=== PATIENT | male | born 1940 | race Caucasian/White ===

== ENCOUNTER 2017-05-12 20:14 | Inpatient (IN) | payer OTHER, BC ==
[~2017-05-12] VITALS: Ht 175.3 cm; Wt 98.9 kg
--- NOTE | ~2017-05-12 | EKG ---
[address] [facility] [place] [address] ELECTROCARDIOGRAM REPORT Name: SHARYN OSEGUERA V Room #: 170-12 ADM IN M.R.#: [id number] Admission: 05/12/17 Attend Phys: Colten Obrien MD Discharge: Date of : 38 Report #: [id number] THIS REPORT FOR: //name// [facility] ED Test Date: 2017-05-12 Test Time: 20:28:20 Pat Name: SHARYN OSEGUERA Department: Room: 170 Gender: M Co Founder And Cto: [id number] : 1940 Requested By: Emma Stevens Order Number: [id number] MD: Hesham Eugene Measurements Intervals [place] Rate: 71 P: 0 RI: 66 QRS: 86 QRSD: 123 T: 240 QT: 393 QTc: 428 Interpretive Statements Sinus rhythm Short RI interval Probable left atrial enlargement Left ventricular hypertrophy Anterior Q waves, possibly due to LVH Nonspecific T abnormalities, inferior leads Electronically Signed On 05-12-2017 22:12:57 BEAN PICKER by Hesham Eugene [email or web address] <ELECTRONICALLY SIGNED> By: Hesham Eugene MD 05/12/172 27 27 Hesham Eugene MD /VALENTINO
--- NOTE | ~2017-05-12 | HC ---
[facility] [place] [address] CONSULTATION Name: SHARYN OSEGUERA V Room #: 434-P [facility] IN M.R.#: [id number] Admission: 05/12/17 Attend Phys: Car Mabry MD Discharge: 05/14/17 Date of : 39 Report #: [id number] THIS REPORT FOR: //name// CC: Tai Mabry CARDIOLOGY CONSULTATION REASON FOR CONSULTATION: Weakness. HISTORY OF PRESENT ILLNESS: The patient is a 77-year-old who I have seen here as an inpatient, but follows with a primary strategic planning specialist at the [facility]. The patient has a history of coronary artery disease, status post CABG, ischemic cardiomyopathy, EF of 30%-35%, Medtronic ICD with 2 right-sided leads and abandoned ICD lead. He also has a history of diabetes, hypertension and prior CVA. The patient has been in his usual state of health. He reports that he has been having some back pain of unknown etiology. This started about a week ago. He reports that he tried to get up out of bed and due to weakness, was not able to stand and fell on the floor and he could not get off the floor. As such, he called the EMS and he was brought to the Emergency Room. He was admitted for further evaluation. Speaking with the patient, he denies chest pain or chest tightness. He denies any PND or orthopnea. He denies presyncope or syncope. He reports that his shortness of breath has been relatively stable and he has been doing well from a cardiovascular standpoint. REVIEW OF SYSTEMS: A 12-point review of systems was performed and was negative other than what I mentioned above. PAST MEDICAL HISTORY: See my HPI. SOCIAL HISTORY: Does not smoke. FAMILY HISTORY: Noncontributory. ALLERGIES: INCLUDE PENICILLIN, ATORVASTATIN. MEDICATIONS: Include warfarin, losartan, Zetia, digoxin, aspirin, amiodarone 200 a day, glimepiride, insulin, Lasix, Benadryl, acetaminophen, guaifenesin. PHYSICAL EXAMINATION: VITAL SIGNS: Temperature is 36.4, pulse 72, respirations 20, blood pressure 142/75, sats are 99%. GENERAL: He is in no acute distress, alert and oriented x 3. HEENT: His sclerae are anicteric. His oropharynx is clear. NECK: Supple, with no thyromegaly or carotid bruits. HEART: Regular rate and rhythm with normal S1 and S2. No S3, S4. He does not have appreciable JVD. [address] [address] CONSULTATION Name: SHARYN OSEGUERA V Room #: 434-P [facility] IN M.R.#: [id number] Admission: 05/12/17 Attend Phys: Car Mabry MD Discharge: 05/14/17 Date of : 38 Report #: [id number] LUNGS: Clear to auscultation bilaterally. ABDOMEN: Soft, nontender, nondistended with no hepatosplenomegaly. EXTREMITIES: There is no clubbing, cyanosis and there is no edema noted. NEUROLOGIC: His cranial nerves 2-12 are intact. His incision site which is right-sided has healed nicely with no signs of infection. LABORATORY DATA: His 12-lead EKG, I reviewed from yesterday showed sinus rhythm with no ischemic changes. He had a chest x-ray, which I reviewed, which shows a right-sided ICD with 2 ICD leads on the right with one of them being abandoned. There is also an atrial lead. There is no evidence of pulmonary edema. His white count is 13.9, his hemoglobin is 12.2, his platelets are 139. Blood gas pH 7.4, pCO2 of 35, pCO2 of 76. Coags: INR was 2.4. Chemistry: Sodium was 138, potassium 3.7, BUN 19, creatinine 1.7. Troponin was negative. His proBNP was 2835. ASSESSMENT: 1. Coronary artery disease. 2. Ischemic cardiomyopathy. 3. Chronic congestive heart failure. 4. Weakness of unclear etiology. In summary, the patient is a 77-year-old with a history of known coronary artery disease as well as ischemic cardiomyopathy and congestive heart failure, presents with worsening weakness. On physical exam, the patient appears to be clinically euvolemic and does not appear to be in acute congestive heart failure. I would recommend continuing his standard home medications for management of his cardiomyopathy. With regards to his coronary disease, he has no symptoms of angina. His EKG shows no ischemic changes and his initial troponin was normal. With regards to his atrial fibrillation, this appears to be controlled on his current dose of amiodarone and he should continue with his current anticoagulation regimen. I thank you for allowing me to participate in his care. <ELECTRONICALLY SIGNED> By: Hesham Eugene MD 05/17/17 1313 1540 [id number] Hesham Eugene MD /nt
--- NOTE | ~2017-05-12 | 2DMMODE ---
[facility] [place] [place] [address] 2 D/M-MODE ECHOCARDIOGRAM Name: ANA ROSASHARYN Joseph Room #: 434-P ADM IN M.R.#: [id number] Admission: 05/12/17 Attend Phys: Patti Burr Discharge: Date of : 38 Date of Service: 05/13/17 1543 Report #: [id number] THIS REPORT FOR: //name// APPROVED REPORT Study performed: 05/13/2017 14:05:08 EXAM: Comprehensive 2D, Doppler, and color-flow Echocardiogram Patient Location: Bedside Room #: 434 Status: routine BSA: 2.14 HR: 70 bpm BP: 142/75 mmHg Other Information Study Quality: Adequate Indications Diabetes Pacemaker Hypertension/HDD History of Atrial fibrillation, HLP. Echo Enhancing Agent Indication: Endocardial border delineation Agent(s) / Amount(s) Used: Optison 3 cc 2D Dimensions LVEF(%): 29.68 (>50%) IVSd: 16.03 (7-11mm) LVDd: 63.91 mm PWd: 13.84 (7-11mm) Ascending Ao: 35.59 (22-36mm) LVDs: 54.80 (25-40mm) Aortic Root: 38.45 mm IVC: 22.00 mm Puentes's LVEF: 29.68 % Volumes Left Atrial Volume (Systole) Single Plane 4CH: 92.95 mL Single Plane 2CH: 86.73 mL LA ESV Index: 46.00 mL/m2 Aortic Valve AoV Peak Marlo.: 1.55 m/s [facility] [address] [place] [address] 2 D/M-MODE ECHOCARDIOGRAM Name: SHARYN OSEGUERA V Room #: 434-P [facility] IN [facility].#: [id number] Admission: 05/12/17 Attend Phys: Patti Burr Discharge: Date of : 38 Date of Service: 05/13/17 1543 Report #: [id number] AO Peak Gr.: 9.63 mmHg LVOT Max P.07 mmHg LVOT Max V: 1.01 m/s Mitral Valve E/A Ratio: 2.2 MV Decel. Time: 129.64 ms MV E Max Marlo.: 0.93 m/s MV A Marlo.: 0.43 m/s MV PHT: 37.59 ms IVRT: 73.82 ms Pulmonary Valve PV Peak Marlo.: 0.94 m/s PV Peak Gr.: 3.53 mmHg Tricuspid Valve TR Peak Marlo.: 2.61 m/s TR Peak Gr.: 27.27 mmHg PA Pressure: 37.00 mmHg Left Ventricle Left ventricle is dilated. There is severe hypokinesis in the apical wall. There is hypokinesis in the anterior wall. There is hypokinesis in the anterolateral wall. There is hypokinesis in the inferolateral wall. Mild to moderate concentric left ventricular hypertrophy. Left ventricular ejection fraction is moderate to severely decreased. LVEF is 30-35%. Grade IV - fixed restrictive diastolic dysfunction. Right Ventricle The right ventricle is normal size. Right ventricle is mildly hypokinetic. Pacemaker lead is present in the right ventricle. Atria Left atrium is dilated. Right atrium is at the upper limits of normal. Pacemaker lead is present in the right atrium. Aortic Valve The aortic valve is normal in structure. Aortic valve is calcified. Trace to mild aortic regurgitation. There is no aortic valvular stenosis. Mitral Valve The mitral valve is normal in structure. Mild mitral regurgitation. No evidence of mitral valve stenosis. Tricuspid Valve The tricuspid valve is normal in structure. There is trace tricuspid [facility] [address] [place] [address] 2 D/M-MODE ECHOCARDIOGRAM Name: SHARYN OSEGUERA V Room #: 434-P [facility] IN .R.#: [id number] Admission: 05/12/17 Attend Phys: Patti Burr Discharge: Date of : 38 Date of Service: 05/13/17 1543 Report #: [id number] regurgitation. The right atrial pressure is estimated at mmHg. There is mild pulmonary hypertension. Pulmonic Valve The pulmonary valve is normal in structure. Trace pulmonic regurgitation. Great Vessels The aortic root is normal in size. IVC is dilated and collapses >50% with inspiration. Pericardium There is no pericardial effusion. <Conclusion> Left ventricle is dilated. Left ventricular ejection fraction is moderate to severely decreased. There is severe hypokinesis in the apical wall. There is hypokinesis in the anterior wall. There is hypokinesis in the anterolateral wall. There is hypokinesis in the inferolateral wall. LVEF is 30-35%. Right ventricle is mildly hypokinetic. Pacemaker lead is present in the right ventricle. Left atrium is dilated. Right atrium is at the upper limits of normal. Pacemaker lead is present in the right atrium. The aortic valve is normal in structure. Aortic valve is calcified. Trace to mild aortic regurgitation. There is no aortic valvular stenosis. The mitral valve is normal in structure. The tricuspid valve is normal in structure. There is trace tricuspid regurgitation. The right atrial pressure is estimated at mmHg. There is mild pulmonary hypertension. The pulmonary valve is normal in structure. Trace pulmonic regurgitation. There is no pericardial effusion. <ELECTRONICALLY SIGNED> By: Gato Oshea MD 05/13/17 1543 1543 1543 Gato Oshea MD /INF
[~2017-05-12 20:14] MED LIST: AMARYL2 MG PO; AMARYL4 MG PO; ASPIRIN EC325 M1 PO; ASPIRIN325 PO; B-121000 MCG PO; CARVEDILOL3.125 MG PO; CIPRO500 MG PO; CO Q-10100 MG; CO Q-10200 MG PO; CORAL CALCIUM1 EAC4 PO; COREG6.25 MG PO; COUMADIN 1MG TAB1 M1 PO; COUMADIN 5 MG TA5 M1 PO; COZAAR 25 MG TA25 M2 PO; COZAAR100 MG PO; DIGITEK125 MC1 PO; DOXYCYCLINE 10100 MG PO; ENOXAPARIN100 MG/11; FISH OIL 1,4001 EACH PO; FLOMAX0.4 MG PO; FUROSEMIDE 20 M20 M1 PO; GLUCOPHAGE1000 MG PO; GLUCOPHAGE500 MG PO; KLOR-CON 1010 MEQ PO; LANTUS SOL100 UNIT/1; LANTUS SOL100 UNIT/1 SQ; LANTUS SOL100 UNIT/1 SUBQ; LASIX 20 MG TAB20 MG PO; METFORMIN HCL1000 M1 PO; METFORMIN HCL500 MG PO; METOLAZONE 2.52.5 M1 PO; METOLAZONE 2.52.5 MG PO; MULTI VITAMIN1 EACH PO; NORCO 5-325 TA1 EACH PO; ONDANSETRON HCL4 M2 PO; OSCAL PO; PACERONE 200 M200 M1 PO; PACERONE200 MG PO; POTASSIUM20 PO; PRAVACHOL 20 MG20 M1 PO; PRAVACHOL40 M1 PO; PRAVACHOL40 MG PO; RESTORIL15 MG PO; SOTALOL 120 MG120 M1 PO; TOBREX5 ML; TRAMADOL 50 MG50 MG; TRAMADOL-ACETA1 EACH PO; TYLENOL325 MG PO; ULTRACET TABLET1 TAB PO; VITAMIN D1000 UNI1 PO; VITAMINC500 PO; ZAROXOLYN 5MG TA5 MG; ZETIA10 MG PO; ZPAK PO
[2017-05-12 20:15] VITALS: BP 136/61
[2017-05-12 20:53] LABS: ABSOLUTE NEUTROPHILS 10.7 thou/uL (1.4-8.2); BASOPHILS 0.7 % (0.0-2.0); EOSINOPHILS 0.5 % (0.0-3.0); HEMATOCRIT 37.8 % (42.0-52.0); HEMOGLOBIN 12.2 gm/dL (14.0-18.0); LYMPHOCYTES 12.6 % (24.0-44.0); MCH 27.3 pg (26.0-34.0); MCHC 32.3 g/dL (28.0-37.0); MCV 84.6 fL (80.0-100.0); MONOCYTES 9.2 % (1.0-8.0); PLATELET COUNT 139 thou/uL (150-400); RBC 4.47 mil/uL (4.50-6.00); WBC 13.9 thou/uL (4.0-11.0)
[2017-05-12 20:54] LABS: MANUAL DIFF NO
[2017-05-12 21:06] LABS: CALCIUM 9.6 mg/dL (8.5-10.1); CREATININE 1.7 mg/dL (0.7-1.3); POTASSIUM 3.7 mmol/L (3.5-5.1)
[2017-05-12 21:12] LABS: APTT 44.3 Seconds (24.5-32.8); INR 2.6; PROTIME 26.1 Seconds (9.3-11.4)
[2017-05-12 21:16] LABS: ALBUMIN 3.5 g/dL (3.4-5.0); DIRECT BILIRUBIN 0.3 mg/dL (<0.1-0.3); TOTAL BILIRUBIN 1.3 mg/dL (<0.1-1.0); TOTAL PROTEIN 7.9 g/dL (6.4-8.2); TROPONIN-I 0.05 ng/mL (<0.06)
[2017-05-12 21:37] LABS: URINE BILIRUBIN NEGATIVE (Negative); URINE BLOOD 1+ (Negative); URINE COLOR YELLOW; URINE GLUCOSE-RANDOM* NEGATIVE (Negative); URINE KETONES NEGATIVE (Negative); URINE NITRITE NEGATIVE (Negative); URINE PROTEIN (DIPSTICK) 2+ (Negative); URINE UROBILINOGEN 0.2 E.U./dl (0.2-1.0)
[2017-05-12 21:44] LABS: BACTERIA None Seen /HPF (None Seen); CASTS None Seen /LPF (None Seen); CRYSTALS None Seen /LPF (None Seen); SQUAMOUS 0-3 Few /LPF (0-3); URINE RBC 0-2 Rare /HPF (0-2); URINE WBC None Seen /HPF (0-5)
[2017-05-12 22:00] LABS: ABG SAMPLE TYPE ARTERIAL; BE(vivo) 2.6 mmol/L (-2 to +3); HCO3 25.9 mmol/L (22.0-26.0); LACTATE 1.29 mmol/L (0.5-2.0); O2Hb 94.8 % (92.0-98.0); PCO2 35.8 mmHg (35.0-45.0); PO2 76.4 mmHg (80.0-100.0); STICK SITE L.RADIAL; pH 7.478 (7.360-7.450); sO2 96.2 % (92.0-98.0)
[2017-05-12 22:56] VITALS: BP 123/82
[2017-05-12 23:26] VITALS: BP 148/72
[2017-05-13] MEDS ORDERED: COUMADIN 5 MG TA5 M1 PO (00:10)
[2017-05-13 01:21] LABS: FOLIC ACID > 40.0 ng/mL (8.6-58.9)
[2017-05-13 04:57] VITALS: BP 133/61
[2017-05-13 05:15] LABS: INR 2.4
[2017-05-13 08:00] VITALS: BP 142/75
[2017-05-13 11:58] VITALS: BP 142/75
[2017-05-13 16:00] VITALS: BP 153/70
[2017-05-13 20:05] VITALS: BP 141/61
[2017-05-14 04:26] VITALS: BP 155/75
[2017-05-14 05:45] LABS: CALCIUM 8.8 mg/dL (8.5-10.1); CREATININE 1.9 mg/dL (0.7-1.3); MAGNESIUM 1.9 mg/dL (1.8-2.4); POTASSIUM 3.3 mmol/L (3.5-5.1)
[2017-05-14 05:47] LABS: INR 2.7; PROTIME 27.4 Seconds (9.3-11.4)
[2017-05-14 08:00] VITALS: BP 160/75
[2017-05-14 12:53] VITALS: BP 142/75
[2017-05-14 15:51] VITALS: BP 139/68
[2017-05-14 16:27] VITALS: BP 142/75
== END 2017-05-14 17:30 | disposition home health service (06) | DRG 291 ==
LOC: ER 20:14 → EROBS 21:37 → 4S 21:37 → ENTRNSPT 05-14 16:54 → 4S 05-14 17:30
PROVIDERS: Emergency Medicine; Internal Medicine; Nurse Practitioner Acute Care
DX: I13.0 Hypertensive heart and chronic kidney disease with heart failure and stage 1 through stage 4 chronic kidney disease, or unspecified chronic kidney disease (principal); I50.23 Acute on chronic systolic (congestive) heart failure; J96.00 Acute respiratory failure, unspecified whether with hypoxia or hypercapnia; I25.10 Atherosclerotic heart disease of native coronary artery without angina pectoris; I25.5 Ischemic cardiomyopathy; E78.5 Hyperlipidemia, unspecified; E11.22 Type 2 diabetes mellitus with diabetic chronic kidney disease; I48.2 Chronic atrial fibrillation; N18.3 Chronic kidney disease, stage 3 (moderate); Z95.1 Presence of aortocoronary bypass graft; Z79.82 Long term (current) use of aspirin; Z88.8 Allergy status to other drugs, medicaments and biological substances; Z95.0 Presence of cardiac pacemaker; Z95.5 Presence of coronary angioplasty implant and graft; Z86.73 Personal history of transient ischemic attack (TIA), and cerebral infarction without residual deficits; Z88.0 Allergy status to penicillin; Z79.01 Long term (current) use of anticoagulants; Z87.891 Personal history of nicotine dependence; Z82.49 Family history of ischemic heart disease and other diseases of the circulatory system; Z83.3 Family history of diabetes mellitus; Z79.899 Other long term (current) drug therapy
CPT/HCPCS: 10195

== ENCOUNTER 2017-12-03 02:57 | Emergency (ER) | payer OTHER, BC ==
[~2017-12-03] VITALS: Ht 175.3 cm; Wt 104.3 kg
--- NOTE | ~2017-12-03 | EKG ---
[place] [address] [place] [address] ELECTROCARDIOGRAM REPORT Name: SHARYN OSEGUERA V [id number] Admission: 12/03/17 Attend Phys: Discharge: 12/03/17 Date of : 39 Report #: [id number] THIS REPORT FOR: //name// [facility] ED Test Date: 2017-12-03 Test Time: 03:46:51 Pat Name: SHARYN OSEGUERA Department: Room: Gender: Stable Manager: [facility] : 1940 Requested By: Emma Stevens Order Number: [id number] MD: Romulo Moncada Measurements Intervals [place] Rate: 71 P: 243 [place]: 165 QRS: 78 QRSD: 125 T: 159 QT: 392 QTc: 426 Interpretive Statements Sinus rhythm with atrial pacing Poor R wave progression Compared to ECG 05/12/2017 20:28:20 No significant change was found Electronically Signed On 12-03-2017 9:00:58 CDT by Romulo Moncada [email or web address] <ELECTRONICALLY SIGNED> By: Romulo Moncada MD, [facility] 12/03/17 0900 0346 0346 Romulo Moncada MD, FACC /EPI
[2017-12-03 03:31] LABS: ABSOLUTE NEUTROPHILS 8.5 thou/uL (1.4-8.2); BASOPHILS 1.2 % (0.0-2.0); HEMATOCRIT 38.3 % (42.0-52.0); HEMOGLOBIN 12.7 gm/dL (14.0-18.0); LYMPHOCYTES 17.1 % (24.0-44.0); MCH 27.5 pg (26.0-34.0); MCHC 33.1 g/dL (28.0-37.0); MCV 83.2 fL (80.0-100.0); MONOCYTES 11.1 % (1.0-8.0); PLATELET COUNT 165 thou/uL (150-400); POLYS 67.6 % (36.0-66.0); RDW 16.1 % (10.5-14.5); WBC 12.6 thou/uL (4.0-11.0)
[2017-12-03 03:40] LABS: CREATININE 2.1 mg/dL (0.7-1.3); POTASSIUM 3.9 mmol/L (3.5-5.1)
[2017-12-03 03:43] LABS: INR 2.5; PROTIME 25.3 Seconds (9.3-11.4)
[2017-12-03 04:02] LABS: URINE BILIRUBIN NEGATIVE (Negative); URINE BLOOD TRACE (Negative); URINE CLARITY CLEAR; URINE COLOR YELLOW; URINE GLUCOSE-RANDOM* NEGATIVE (Negative); URINE KETONES NEGATIVE (Negative); URINE LEUKOCYTES NEGATIVE (Negative); URINE NITRITE NEGATIVE (Negative); URINE PROTEIN (DIPSTICK) 2+ (Negative); URINE UROBILINOGEN 0.2 E.U./dl (0.2-1.0)
[2017-12-03 04:10] LABS: BACTERIA None Seen /HPF (None Seen); CASTS None Seen /LPF (None Seen); MUCUS None Seen strn/LPF (None Seen); SQUAMOUS None Seen /LPF (0-3); URINE RBC None Seen /HPF (0-2); URINE WBC None Seen /HPF (0-5)
[2017-12-03 04:11] LABS: CRYSTALS None Seen /LPF (None Seen)
== END 2017-12-03 04:26 | disposition home or self-care (01) ==
LOC: ER 02:57
PROVIDERS: Emergency Medicine
DX: M54.5 Low back pain (principal); R10.9 Unspecified abdominal pain; E78.5 Hyperlipidemia, unspecified; I48.91 Unspecified atrial fibrillation; I12.9 Hypertensive chronic kidney disease with stage 1 through stage 4 chronic kidney disease, or unspecified chronic kidney disease; E11.22 Type 2 diabetes mellitus with diabetic chronic kidney disease; N18.3 Chronic kidney disease, stage 3 (moderate); I11.0 Hypertensive heart disease with heart failure; I50.9 Heart failure, unspecified; I25.810 Atherosclerosis of coronary artery bypass graft(s) without angina pectoris; Z95.0 Presence of cardiac pacemaker; Z88.0 Allergy status to penicillin

== ENCOUNTER 2017-12-09 09:37 | Emergency (ER) | payer OTHER, BC ==
[~2017-12-09] VITALS: Ht 175.3 cm; Wt 92.1 kg
[2017-12-09] MEDS ORDERED: ULTRAM 50MG TAB50 MG PO (10:52)
== END 2017-12-09 11:50 | disposition home or self-care (01) ==
LOC: ER 09:37
DX: M54.5 Low back pain (principal); I25.10 Atherosclerotic heart disease of native coronary artery without angina pectoris; I48.91 Unspecified atrial fibrillation; I13.0 Hypertensive heart and chronic kidney disease with heart failure and stage 1 through stage 4 chronic kidney disease, or unspecified chronic kidney disease; I50.9 Heart failure, unspecified; N18.3 Chronic kidney disease, stage 3 (moderate); E78.5 Hyperlipidemia, unspecified; E11.9 Type 2 diabetes mellitus without complications; F17.210 Nicotine dependence, cigarettes, uncomplicated; Z88.0 Allergy status to penicillin; Z88.1 Allergy status to other antibiotic agents

== ENCOUNTER 2017-12-11 16:39 | Emergency (ER) | payer OTHER, BC ==
[~2017-12-11] VITALS: Ht 175.3 cm; Wt 104.3 kg
--- NOTE | ~2017-12-11 | EKG ---
[facility] [place] [address] ELECTROCARDIOGRAM REPORT Name: SHARYN OSEGUERA V [facility] [id number] Admission: 12/11/17 Attend Phys: Discharge: 12/11/17 Date of : 39 Report #: [id number] THIS REPORT FOR: //name// [facility] ED Test Date: 2017-12-11 Test Time: 16:51:18 Pat Name: SHARYN OSEGUERA Department: Room: Gender: M Medical Records Administrator: KKODJOVI : 1940 Requested By: Gris Waldron Order Number: [id number] MD: Romulo Moncada Measurements Intervals [place] Rate: 70 P: [place]: QRS: 77 QRSD: 128 T: 265 QT: 399 QTc: 431 Interpretive Statements Sinus rhythm with first-degree AV block Probable LVH with secondary repol abnrm Anterior ST elevation, probably due to LVH Compared to ECG 12/03/2017 03:46:51 No significant change was found Electronically Signed On 12-12-2017 8:41:38 CDT by Romulo Moncada [email or web address] <ELECTRONICALLY SIGNED> By: Romulo Moncada MD, [facility] 12/12/17 0841 165 50 Romulo Moncada MD, [facility] /EPI
[~2017-12-11 16:39] MED LIST changes: +ULTRAM 50MG TAB50 MG PO
[2017-12-11 17:09] LABS: ABSOLUTE NEUTROPHILS 7.9 thou/uL (1.4-8.2); BASOPHILS 1.1 % (0.0-2.0); EOSINOPHILS 2.1 % (0.0-3.0); HEMATOCRIT 38.6 % (42.0-52.0); HEMOGLOBIN 13.1 gm/dL (14.0-18.0); LYMPHOCYTES 18.4 % (24.0-44.0); MCH 27.7 pg (26.0-34.0); MCHC 33.8 g/dL (28.0-37.0); MONOCYTES 10.2 % (1.0-8.0); PLATELET COUNT 184 thou/uL (150-400); POLYS 68.2 % (36.0-66.0); RBC 4.71 mil/uL (4.50-6.00); RDW 15.9 % (10.5-14.5); WBC 11.5 thou/uL (4.0-11.0)
[2017-12-11 17:17] LABS: ANION GAP 8 mmol/L (7-16); BUN 32 mg/dL (7-18); CALCIUM 9.4 mg/dL (8.5-10.1); CHLORIDE 98 mmol/L (98-107); CO2 28 mmol/L (21-32); CREATININE 2.1 mg/dL (0.7-1.3); GLUCOSE 135 mg/dL (74-106); POTASSIUM 4.4 mmol/L (3.5-5.1); SODIUM 134 mmol/L (136-145)
[2017-12-11 17:26] LABS: ALBUMIN 3.8 g/dL (3.4-5.0); LIPASE 320 U/L (73-393); SGOT 40 U/L (15-37); SGPT 40 U/L (30-65); TOTAL BILIRUBIN 0.7 mg/dL (<0.1-1.0); TOTAL PROTEIN 8.6 g/dL (6.4-8.2); TROPONIN-I <0.06 ng/mL (<0.06)
[2017-12-11 17:54] LABS: URINE BILIRUBIN NEGATIVE (Negative); URINE BLOOD 1+ (Negative); URINE CLARITY CLEAR; URINE COLOR YELLOW; URINE GLUCOSE-RANDOM* NEGATIVE (Negative); URINE KETONES NEGATIVE (Negative); URINE LEUKOCYTES-REFLEX NEGATIVE (Negative); URINE NITRITE-REFLEX NEGATIVE (Negative); URINE PROTEIN (DIPSTICK) 1+ (Negative); URINE UROBILINOGEN 0.2 E.U./dl (0.2-1.0)
[2017-12-11 18:02] LABS: CASTS None Seen /LPF (None Seen); CRYSTALS None Seen /LPF (None Seen); SQUAMOUS 0-3 Few /LPF (0-3); URINE RBC 3-10 Few /HPF (0-2)
[2017-12-11 18:03] LABS: BACTERIA-REFLEX 1-9 Few /HPF (None Seen); URINE WBC-REFLEX None Seen /HPF (0-5)
[2017-12-12] MEDS ORDERED: VITAMIN D1000 UNI1 PO (13:37)
[2017-12-12] MEDS ORDERED: TUMS PO (13:37)
[2017-12-12] MEDS ORDERED: COREG12.5 MG PO (13:37)
[2017-12-12] MEDS ORDERED: HUMALOG100 UNIT/2 (13:37)
[2017-12-12] MEDS ORDERED: COENZYME Q-10200 MG PO (13:38)
[2017-12-12] MEDS ORDERED: VITAMIN B-12500 MCG PO (13:38)
[2017-12-12] MEDS ORDERED: OMEGA-31000 M1 PO (13:39)
[2017-12-12] MEDS ORDERED: ONE DAILY MULT1 EAC2 PO (13:39)
[2017-12-12] MEDS ORDERED: METFORMIN HCL500 MG PO (13:47)
== END 2017-12-11 20:27 | disposition home or self-care (01) ==
LOC: ER 16:39
PROVIDERS: Physician Assistant
DX: K59.00 Constipation, unspecified (principal); I25.10 Atherosclerotic heart disease of native coronary artery without angina pectoris; I13.0 Hypertensive heart and chronic kidney disease with heart failure and stage 1 through stage 4 chronic kidney disease, or unspecified chronic kidney disease; I50.9 Heart failure, unspecified; N18.3 Chronic kidney disease, stage 3 (moderate); I48.91 Unspecified atrial fibrillation; E11.9 Type 2 diabetes mellitus without complications; E78.5 Hyperlipidemia, unspecified; Z88.0 Allergy status to penicillin; Z88.1 Allergy status to other antibiotic agents; Z87.891 Personal history of nicotine dependence

== ENCOUNTER 2017-12-12 00:01 | Emergency (ER) | payer OTHER, BC ==
[~2017-12-12] VITALS: Ht 175.3 cm; Wt 104.3 kg
[~2017-12-12 00:01] MED LIST changes: -COENZYME Q-10200 MG PO; -COREG12.5 MG PO; -HUMALOG100 UNIT/2; -OMEGA-31000 M1 PO; -ONE DAILY MULT1 EAC2 PO; -TUMS PO; -VITAMIN B-12500 MCG PO
[2017-12-12 02:34] LABS: INR 3.2; PROTIME 32.4 Seconds (9.3-11.4)
[2017-12-12] MEDS ORDERED: COREG12.5 MG PO (13:37)
[2017-12-12] MEDS ORDERED: TUMS PO (13:37)
[2017-12-12] MEDS ORDERED: VITAMIN D1000 UNI1 PO (13:37)
[2017-12-12] MEDS ORDERED: HUMALOG100 UNIT/2 (13:37)
[2017-12-12] MEDS ORDERED: COENZYME Q-10200 MG PO (13:38)
[2017-12-12] MEDS ORDERED: VITAMIN B-12500 MCG PO (13:38)
[2017-12-12] MEDS ORDERED: ONE DAILY MULT1 EAC2 PO (13:39)
[2017-12-12] MEDS ORDERED: OMEGA-31000 M1 PO (13:39)
[2017-12-12] MEDS ORDERED: METFORMIN HCL500 MG PO (13:47)
== END 2017-12-12 04:23 | disposition home or self-care (01) ==
LOC: ER 00:01
PROVIDERS: Emergency Medicine
DX: S00.03XA Contusion of scalp, initial encounter (principal); F17.210 Nicotine dependence, cigarettes, uncomplicated; I25.10 Atherosclerotic heart disease of native coronary artery without angina pectoris; I13.0 Hypertensive heart and chronic kidney disease with heart failure and stage 1 through stage 4 chronic kidney disease, or unspecified chronic kidney disease; E11.22 Type 2 diabetes mellitus with diabetic chronic kidney disease; N18.3 Chronic kidney disease, stage 3 (moderate); I50.9 Heart failure, unspecified; I48.91 Unspecified atrial fibrillation; E78.5 Hyperlipidemia, unspecified; Z88.1 Allergy status to other antibiotic agents; Z88.8 Allergy status to other drugs, medicaments and biological substances; Z88.0 Allergy status to penicillin; W06.XXXA Fall from bed, initial encounter; Y93.89 Activity, other specified; Y92.89 Other specified places as the place of occurrence of the external cause; Y99.8 Other external cause status

== ENCOUNTER → 2017-12-12 | Outpatient (CLI) | payer OTHER, BC ==
[~2017-12-12] VITALS: Ht 175.3 cm; Wt 104.3 kg
[~2017-12-12] MED LIST changes: +COENZYME Q-10200 MG PO; +COREG12.5 MG PO; +HUMALOG100 UNIT/2; +OMEGA-31000 M1 PO; +ONE DAILY MULT1 EAC2 PO; +TUMS PO; +VITAMIN B-12500 MCG PO
--- NOTE | ~2017-12-12 | HPC ---
[facility] [address] [place] [address] PAIN MANAGEMENT CONSULTATION Name: SHARYN OSEGUERA V Room #: REG [facility] Valentina.#: [id number] Admission: 12/12/17 Attend Phys: Derrick Cardona DO Discharge: Date of : 39 Report #: [id number] THIS REPORT FOR: //name// CC: Tai Cardona DATE OF SERVICE: 12/12/2017 The patient is a very unfortunate 77-year-old gentleman seen in consultation at the request of Dr. Wharton for assistance with management of axial back pain. The patient has used a walker "off and on" for a number of years. Over the past 6 months, his axial back pain has gotten to the point that he has been using a walker 100% of the time. He is seen today in the company of a neighbor who is very helpful and supportive. She notes that the patient's pain has gotten to the point that he is eating very little and is becoming more disabled. He is becoming more deconditioned. He has actually been in the ER 3 times in the past 3 days, he was seen 12/09/2017 for axial back pain. Seen again 12/11/2017 for constipation. He fell, hit his head and had exacerbation of axial back pain 12/12/2017 (actually very early this morning). Presents to the pain clinic today. Rates his pain anywhere from 6-10 on a VAS. Describes periodic stabbing pain in his back, exacerbated with any and all weightbearing. Has ongoing weakness in his legs, has had episodic sciatic pain, but that has not been a problem recently. He uses tramadol, Icy Hot, Lidoderm and Tylenol for pain. REVIEW OF SYSTEMS: Complete review of systems was attached to chart and gone over with the patient. He is . He has a daughter, who lives out of state. He has a neighbor about his daughter's age who is a very kind and helpful and sets up his medications for him at home and takes him to his doctor's appointments. She has been very busy taking him to the ER the past 3 nights. He does not drink alcohol or use tobacco products. 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 He has a history of significant diabetes, poorly controlled. He has been on insulin for quite some time. Recently started glimepiride and metformin and states his blood sugars are getting "under a little better control." History of coronary artery disease status post coronary artery bypass graft x 6. History of atrial fibrillation, currently on digoxin and Coumadin. Hypertension, treated with losartan and Lasix. Some chronic insomnia for which he takes temazepam. Pravastatin for dyslipidemia. He also takes Zetia as well. History of CVA several years ago. He has loss of visual acuity in the right field. [address] [address] PAIN MANAGEMENT CONSULTATION Name: SHARYN OSEGUERA V Room #: REG [facility] Jayashree#: [id number] Admission: 12/12/17 Attend Phys: Derrick Cardona DO Discharge: Date of : 39 Report #: [id number] PHYSICAL EXAMINATION: 5-foot 9-inch tall, 230-pound gentleman. BMI of 33.9 kilograms per meter squared. Blood pressure 147/82, pulse 71, respirations are 16. Cranial nerves 2-12 are grossly intact, the patient does have lack of visual acuity in the right visual field secondary to CVA. His extraocular muscles do appear to be intact. There is no nystagmus. Cervical range of motion is adequate. Thyroid is modestly enlarged, no nodules are noted. Upper extremity strength is generally preserved. Heart is irregularly irregular. No murmurs are detected. Lungs show some shallow respirations. Has an endomorphic build. Rises from chair using armrests. Does require some assistance. Has ataxia and antalgic gait, diffuse tenderness across the low back about the beltline and below. Lumbar flexion, rotation exacerbate pain. Lower extremity strength is diminished, but symmetric. Straight leg raise negative. Patellar, Achilles reflexes are diminished, but symmetric. DIAGNOSTIC STUDIES: Include x-ray lumbar spine from 12/09/2017, which does note a multilevel spondylosis with facet arthropathy. Suspected diffuse bone demineralization. ASSESSMENT: Symptomatic lumbar spondylosis without myelopathy, lumbosacral spondylosis without myelopathy, axial back pain in gentleman with multiple comorbidities including coronary artery disease, atrial fibrillation, anticoagulated with Coumadin and insulin-dependent diabetes with modest to poor control. RECOMMENDATIONS: 1. I had a long discussion with the patient and his mine engineer today. Typically NSAID agents would be helpful, but they are contraindicated in this gentleman with history of coronary artery disease and nonsteroidal anti-inflammatory agents. 2. We will move forward with bilateral L4-L5 and L5-S1 facet joint injection under fluoroscopy, we will use a diminish dose of steroid (40 mg total). Continue Tylenol, tramadol, and Lidoderm patch for pain as prescribed by Dr. Wharton. 3. Follow up in about 3 weeks for reevaluation. May consider repeat facet joint injections if they are helpful. May give consideration to medial branch dorsal rami diagnostic block and RFL though the patient may need to be off Coumadin for the radiofrequency lesioning (can likely do the medial branch dorsal rami diagnostic blocks with a 22-gauge spinal needle without discontinuing anticoagulant). Thank you for allowing me to participate in the patient's care. I will keep you abreast of his progress. PROCEDURE NOTE: Bilateral L4-L5 and L5-S1 facet joint injections under fluoroscopy. [address] [address] PAIN MANAGEMENT CONSULTATION Name: SHARYN OSEGUERA V Room #: REG [facility] Blanc#: [id number] Admission: 12/12/17 Attend Phys: Derrick Cardona DO Discharge: Date of : 39 Report #: [id number] INDICATION: Symptomatic lumbar and lumbosacral spondylosis without myelopathy (M47.816, M47.817). PROCEDURE: After written informed consent was obtained, the patient was taken to the fluoroscopy suite on the [facility]. He was rolled from supine to prone. Area of maximal tenderness was identified and fluoroscopically noted to be over the L4-L5 and L5-S1 facet joints. A wide prep and drape was accomplished. Skin wheal with Xylocaine was raised. A 22-gauge stylet needle was placed to contact the inferior aspect of the right L4-L5 and right L5-S1 facet joints. AP and oblique projections showed good needle placement. A 10 mg triamcinolone plus 1 mL of 0.5% preservative-free bupivacaine was injected at each site. Needle was removed. C-arm was turned obliquely to the contralateral, i.e., left side and procedure was repeated. After all four needles were removed, the area was cleansed. The patient was logrolled back on to the transportation [facility]. Taken to the recovery room and monitored for an appropriate period of time, discharged in good and stable condition, noting incremental improvement of baseline pain. Fluoroscopy time was under 20 seconds. We will have the patient follow up with Dr. Aristides Cardona in 3 weeks if needed. <ELECTRONICALLY SIGNED> By: Derrick Cardona DO 12/13/17 0715 1435 1836 Derrick Cardona DO /nt
[2017-12-12 13:47] VITALS: BP 147/82
== END | disposition home or self-care (01) ==
LOC: PAIN
DX: M47.816 Spondylosis without myelopathy or radiculopathy, lumbar region (principal); M47.817 Spondylosis without myelopathy or radiculopathy, lumbosacral region; M54.9 Dorsalgia, unspecified; I25.10 Atherosclerotic heart disease of native coronary artery without angina pectoris; I48.91 Unspecified atrial fibrillation; E11.22 Type 2 diabetes mellitus with diabetic chronic kidney disease; N18.6 End stage renal disease; Z79.4 Long term (current) use of insulin; Z79.01 Long term (current) use of anticoagulants; Z79.899 Other long term (current) drug therapy; Z98.890 Other specified postprocedural states; Z87.440 Personal history of urinary (tract) infections; Z88.0 Allergy status to penicillin; Z88.8 Allergy status to other drugs, medicaments and biological substances; Z79.82 Long term (current) use of aspirin

== ENCOUNTER 2017-12-17 14:48 | Inpatient (IN) | payer OTHER, BC ==
[~2017-12-17] VITALS: Ht 175.3 cm; Wt 105.6 kg
--- NOTE | ~2017-12-17 | HC ---
[facility] [place] [address] CONSULTATION Name: SHARYN OSEGUERA V Room #: 427-P [facility] IN M.R.#: [id number] Admission: 12/17/17 Attend Phys: Kike Huang MD Discharge: Date of : 39 Report #: [id number] THIS REPORT FOR: //name// CC: Kike Wharton CHIEF COMPLAINT: Urinary retention. HISTORY OF PRESENT ILLNESS: The patient is a 77-year-old gentleman who is being seen today at the request of Dr. Huang for evaluation and management of urinary retention. He presented to the Emergency Room yesterday with back pain and abdominal discomfort. A catheter was placed and several 100 mL of urine was obtained. He did have immediate relief of his abdominal discomfort. He really could not provide any meaningful history, however. However, from visiting with him and reviewing the chart, it appears as though he has been treated for BPH and at some point has been on Flomax. ALLERGIES: PENICILLIN, WELCHOL, VYTORIN AND LIPITOR. PAST MEDICAL HISTORY: Include coronary artery disease, nephrolithiasis, chronic anticoagulation with warfarin, diabetes. PAST SURGICAL HISTORY: Pacemaker and bypass surgery. SOCIAL HISTORY: Lives independently. He has been smoking within the last year. He does not drink. REVIEW OF SYSTEMS: He denies shortness of breath or chest pain. PHYSICAL EXAMINATION: GENERAL: He is sitting up in bed and appears comfortable. VITAL SIGNS: Temperature is 36.9, pulse 70, respirations 18, blood pressure 151/59. ABDOMEN: Soft, without mass. He has a normal uncircumcised phallus with no acute scrotal pathology. Sanchez catheter is indwelling. LABORATORY DATA: White 8.7 thousand, hemoglobin 12.6, hematocrit 37.7, platelets 157,000. Sodium 135, potassium 4.8, chloride 99, BUN 7, creatinine is 2.3. Urinalysis is clear yellow, specific gravity is 1.015, pH is 5.5, 0-2 red cells, 0-5 white cells, negative for ketones, blood, nitrites, bilirubin and leukocyte esterase, no squamous epithelial cells. Renal CT scan shows bilateral moderate hydronephrosis with a bladder measuring 14.9 x 12.5 x 22.6 cm. IMPRESSION: Urinary retention with hydronephrosis. PLAN: I recommend leaving the Sanchez in for at least 2 [place] [address] CONSULTATION Name: SHARYN OSEGUERA V Room #: 427-P [facility] IN .R.#: [id number] Admission: 12/17/17 Attend Phys: Kike Huang MD Discharge: Date of : 39 Report #: [id number] recommend any intervention at this time other than to see where his creatinine falls. I am happy to reassess any time. <ELECTRONICALLY SIGNED> By: Yoan Leonardo MD 12/19/17 0639 1237 1821 MD antwan Allen
--- NOTE | ~2017-12-17 | HC ---
[facility] [place] [address] CONSULTATION Name: SHARYN OSEGUERA V Room #: 427-P [facility] IN ..#: [id number] Admission: 12/17/17 Attend Phys: Kike Huang MD Discharge: Date of : 39 Report #: [id number] THIS REPORT FOR: //name// CC: Kike Wharton DATE OF SERVICE: 12/18/2017 HISTORY OF PRESENT ILLNESS: A 77-year-old white male admitted with an elevated INR, back pain for 3 weeks. He was seen in the pain clinic approximately one week ago. He has had a functional decline, where originally he was just using his walker on and off the time and had progressed to the point where he was using the walker 100% of the time. He also has a wheelchair that he uses at times. He was seen in the pain clinic and diagnosed with symptomatic lumbar spondylosis without myelopathy, atrial fibrillation, on anticoagulation with Coumadin and insulin-dependent diabetes mellitus. He was given bilateral L4-L5 and L5-S1 facet injections under fluoroscopy on 12/12/2017. He has been back home, but has had problems with further worsening of his pain, especially when increasing his activity. His INR increased to over 5 and he was noted to develop acute urinary retention. He has bilateral hydronephrosis on CT scan and has had a Sanchez catheter placed. He has acute renal insufficiency. He has a superior endplate fracture at L4 and has significant left neural foraminal stenosis L5-S1, which appears to be consistent with a radicular process. He has multi-joint spinal degenerative arthritis. He has had a functional decline in his independence and we are seeing him in rehabilitation medicine consultation. PAST MEDICAL HISTORY: Includes pacemaker surgery. He has had coronary artery bypass grafting x 6. ALLERGIES: PENICILLIN, EZETIMIBE, SIMVASTATIN, ATORVASTATIN, WELCHOL. HABITS: Former smoker, quit greater than a year ago. No history of alcohol abuse. FAMILY HISTORY: Heart disease in his dad and diabetes in his dad. SOCIAL HISTORY: Lives in a house alone. No steps. Has [employer]. There is a neighbor that is closely involved, who cares for him and drives him. The patient was nevertheless able to do his own ADLs, ambulates with a walker, independent with basic functional mobility skills. He has an out of town daughter. He has a roller walker and a ramp. REVIEW OF SYSTEMS: Did not offer any current complaints of chest pain, shortness of breath, abdominal discomfort. He notes some lower extremity pain, which is bilateral and worse with increased activity. He thinks his back pain is better overall. He notes a significant decline in his overall functional [facility] [address] [place] [address] CONSULTATION Name: SHARYN OSEGUERA V Room #: 427-P [facility] IN M.R.#: [id number] Admission: 12/17/17 Attend Phys: Kike Huang MD Discharge: Date of : 39 Report #: [id number] abilities. PHYSICAL EXAMINATION: GENERAL: He is a pleasant 77-year-old white male in no obvious distress. VITAL SIGNS: Last recorded temperature 98.5, pulse 70, respirations 18, blood pressure 151/59. The patient is alert and oriented. HEENT: Appeared to be benign. NEUROLOGIC: Cranial nerves are grossly intact. Facies are symmetric. He has functional range of motion of both upper extremities. Strength is grade 4 to 4-/5. DTRs are trace to 1. He has an indwelling Sanchez catheter in place. EXTREMITIES: Lower extremities, strength is a grade 3+/5, proximal and distal bilateral lower extremities. Sensation appeared to be reasonably intact to simultaneous stimulation. DTRs were trace to 1. No focal calf swelling. A 1+ distal lower extremity edema. ASSESSMENT: A 77-year-old white male with the following problem list: 1. Left neural foraminal stenosis L5-S1 with clinical radiculopathy. 2. Superior endplate fracture at L4. 3. Acute urinary retention with bilateral hydronephrosis. 4. Acute renal insufficiency. 5. Atrial fibrillation with anticoagulation, on Coumadin. 6. Elevated INR greater than 5. 7. Insulin-dependent diabetes mellitus. 8. History of cardiac pacemaker. 9. Coronary artery bypass grafting x 6. 10. Premorbid walker ambulator, nevertheless living independently in the community. PLAN: PT and OT are to further evaluate his current function. Urology is to assess. We will be glad to follow along with you regarding his rehab therapy needs. By: [id number] Yoan Hernandez MD /nt
--- NOTE | ~2017-12-17 | HC ---
[facility] [place] [address] CONSULTATION Name: SHARYN OSEGUERA V Room #: 427-P [facility] IN .R.#: [id number] Admission: 12/17/17 Attend Phys: Kike Huang MD Discharge: Date of : 39 Report #: [id number] THIS REPORT FOR: //name// CC: Kike Wharton DATE OF SERVICE: 12/18/2017 REASON FOR CONSULTATION: Elevated creatinine. HISTORY OF PRESENT ILLNESS: This is a 77-year-old male who has had 14 days of low back pain. He made his second or third visit to the Emergency Room yesterday. His back pain was worse. He was found to have an elevated creatinine level of 2.3 with a BUN of 42. A CT scan showed a massively distended bladder. He had a Sanchez catheter placed and that drained. I could not find anywhere where there is a recording of how much urine was obtained after that Sanchez was placed, but based upon a CT scan, it looks like this might have been a couple of liters, but again that is speculation. The patient says his back pain is better at this time. He says he has had trouble voiding recently. He does have at least one episode of remote nephrolithiasis and that was several years ago. No recent stone symptoms. He has been seen by Dr. Leonardo already today. His impression from a urologic standpoint is probable prostate is the cause of his bladder distention and inability to void properly. Overall, the patient is a fairly poor historian. Looking back historically for several years, he has run a creatinine level in the 1.5-1.8 range. Clear back in 2012, he had creatinine level 1.4. He says he has never seen a snailer before and prior to Dr. Leonardo, has never seen an urologist before. The patient has a history of heart failure, cardiomyopathy with an ejection fraction of 30-35%. He has some chronic lower extremity edema. He also has an AICD in place. He carries a history of diabetes mellitus, probable obstructive sleep apnea. He had a previous CVA, also history of atrial fibrillation. He had coronary bypass graft surgery in 1997, also prior pneumothorax. MEDICATIONS: On admission include warfarin, Zetia 10 mg daily, digoxin 0.125 mg daily, pravastatin 40 mg daily, Lantus 30 units daily, potassium 10 mEq daily, aspirin 325 mg daily, furosemide 20 mg b.i.d., losartan 100 mg daily, glimepiride 2 mg b.i.d., Restoril 15 mg at bedtime, amiodarone 200 mg b.i.d., Humalog 8 units with meals, vitamin D3, carvedilol 12.5 mg b.i.d., vitamin B12 100 mcg daily, metformin 500 mg daily. ALLERGIES: PENICILLIN, WELCHOL, VYTORIN, LIPITOR. FAMILY HISTORY: Negative for renal disease. SOCIAL HISTORY: The patient is and accompanied by his at this [address] [address] CONSULTATION Name: SHARYN OSEGUERA V Room #: 427-P [facility] IN ..#: [id number] Admission: 12/17/17 Attend Phys: Kike Huang MD Discharge: Date of : 39 Report #: [id number] time. He lives in [place], [place]. He is retired. 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 REVIEW OF SYSTEMS: Again, rather poor historian, states he is eating okay. Denies nausea or vomiting. He is very sketchy on the details of what he has had difficulty with voiding recently except that he has had trouble doing it. With that, he has had some low back pain. He is unclear on nocturia or saleem dysuria, does not think he is having a stone symptoms. He has chronic lower extremity edema, although he thinks his edema is on the new site. He is unaware of fevers, chills or sweats. No chest pain or palpitations. PHYSICAL EXAMINATION: GENERAL: A 77-year-old male, sitting up in a chair. Sanchez catheter is in place draining some light pink urine. He is awake, alert and oriented. VITAL SIGNS: Blood pressure 151/59, heart rate 70, temperature 98.5 degrees Fahrenheit. HEENT: Shows pupils are equal and reactive. Sclerae nonicteric. Oral mucosa is moist. NECK: Veins are not distended. NECK: Supple, no evident adenopathy. CHEST: Clear bilaterally. HEART: Has a regular rate and rhythm. ABDOMEN: Has active bowel sounds, is somewhat obese, soft, nontender. No organomegaly or masses are palpable. BACK: Shows no current CVA tenderness. EXTREMITIES: Show 2+ bilateral lower extremity edema. DIAGNOSTIC DATA: I reviewed his CT scan of the abdomen and pelvis, which shows massive bladder distention as well as bilateral hydronephrosis and hydroureter. Of particular note, there is also some mild atrophy, although he has moderately well preserved renal cortices of the kidneys, not abnormal size as reported. He has multiple acquired renal cysts bilaterally. He has a complex calcified cyst in the left kidney, but no evidence of nephrolithiasis. LABORATORY DATA: From yesterday, sodium 135, potassium 4.8, chloride 99, bicarbonate 29, BUN 42, creatinine 2.3, glucose 236, calcium 9.3. Normal liver function test. Total protein 8.0, albumin 3.4. INR 5.2. White count 8.7, hemoglobin 12.6, hematocrit 37.7, platelets 157,000. Urinalysis: Specific gravity 1.015, pH 5.5, 1+ protein. Negative dipstick. ASSESSMENT: 1. Obstructive uropathy. His admitting CT scan is quite an amazing image with the amount of bladder distention. Sanchez catheter is now in place and appears to be draining well. I have been unable to find how much urine was actually in his bladder at that time the Sanchez was placed. He has a plan already outlined by Dr. Leonardo, which I think is appropriate for continued catheter [place] [address] CONSULTATION Name: SHARYN OSEGUERA V Room #: 427-P [facility] IN ..#: [id number] Admission: 12/17/17 Attend Phys: Kike Huang MD Discharge: Date of : 39 Report #: [id number] starting him on tamsulosin with outpatient followup. 2. Elevated creatinine consistent with acute kidney injury. This is related to his obstructive uropathy, which is really substantial. We will repeat labs tomorrow. It should be getting better. He also has longstanding elevated creatinine consistent with chronic kidney disease. With that he has cardiomyopathy, diabetes, possibly some longer term obstructive changes. Overall, I expect this to improve with more prolonged bladder drainage. Of note, he has multiple acquired renal cysts. The only area of concern is calcified one in the lateral aspect of the left kidney. He also has mild atrophy of the renal cortices confirming longer term chronic kidney disease. 3. History of cardiomyopathy, current mild lower extremity edema. Should diurese better once his bladder outlet obstruction is relieved. 4. History of prior coronary artery bypass graft surgery. 5. History of AICD in place. PLAN: 1. He is currently on a mild rate of IV fluids, although this can be continued. 2. Continue his Sanchez catheter. 3. Repeat labs in the morning. 4. We will follow along in his care. Do not need to changing anything at this time. By: [id number] Aristides Valdovinos MD /nt
[~2017-12-17 14:48] MED LIST changes: +COENZYME Q-10200 MG PO; +COREG12.5 MG PO; +HUMALOG100 UNIT/2; +OMEGA-31000 M1 PO; +ONE DAILY MULT1 EAC2 PO; +TUMS PO; +VITAMIN B-12500 MCG PO
[2017-12-17 14:55] VITALS: BP 150/81
[2017-12-17 15:09] LABS: HEMATOCRIT 37.7 % (42.0-52.0); HEMOGLOBIN 12.6 gm/dL (14.0-18.0); MCH 27.7 pg (26.0-34.0); MCHC 33.3 g/dL (28.0-37.0); MCV 83.2 fL (80.0-100.0); RBC 4.53 mil/uL (4.50-6.00); RDW 16.1 % (10.5-14.5); WBC 8.7 thou/uL (4.0-11.0)
[2017-12-17 15:23] LABS: CALCIUM 9.3 mg/dL (8.5-10.1); CREATININE 2.3 mg/dL (0.7-1.3); POTASSIUM 4.8 mmol/L (3.5-5.1); PROTIME 51.9 Seconds (9.3-11.4)
[2017-12-17 15:29] LABS: ALBUMIN 3.4 g/dL (3.4-5.0); TOTAL BILIRUBIN 0.5 mg/dL (<0.1-1.0)
[2017-12-17 15:31] LABS: INR 5.2
[2017-12-17 16:32] LABS: URINE BILIRUBIN NEGATIVE (Negative); URINE BLOOD NEGATIVE (Negative); URINE CLARITY CLEAR; URINE COLOR YELLOW; URINE GLUCOSE-RANDOM* NEGATIVE (Negative); URINE KETONES NEGATIVE (Negative); URINE LEUKOCYTES-REFLEX NEGATIVE (Negative); URINE NITRITE-REFLEX NEGATIVE (Negative); URINE PROTEIN (DIPSTICK) 1+ (Negative); URINE SPECIFIC GRAVITY 1.015 (1.005-1.035); URINE UROBILINOGEN 0.2 E.U./dl (0.2-1.0)
[2017-12-17 16:41] LABS: CASTS None Seen /LPF (None Seen); SQUAMOUS None Seen /LPF (0-3); URINE WBC-REFLEX 0-5 Rare /HPF (0-5)
[2017-12-17 16:42] LABS: BACTERIA-REFLEX None Seen /HPF (None Seen); CRYSTALS None Seen /LPF (None Seen); URINE RBC 0-2 Rare /HPF (0-2)
[2017-12-17 18:25] VITALS: BP 156/75
[2017-12-17 19:37] VITALS: BP 166/75
[2017-12-17 20:15] VITALS: BP 162/7
[2017-12-18 04:32] VITALS: BP 151/59
[2017-12-18 06:51] LABS: INR 4.3; PROTIME 42.8 Seconds (9.3-11.4)
[2017-12-18 19:40] VITALS: BP 155/49
[2017-12-19 05:02] VITALS: BP 169/69
[2017-12-19 07:10] LABS: CREATININE 1.7 mg/dL (0.7-1.3); POTASSIUM 4.1 mmol/L (3.5-5.1)
[2017-12-19 09:23] LABS: ALBUMIN 3.1 g/dL (3.4-5.0); PHOSPHORUS 3.1 mg/dL (2.5-4.9)
[2017-12-19] MEDS ORDERED: LASIX 40 MG TAB40 M2 PO (22:14)
[2017-12-19] MEDS ORDERED: ASPIRIN EC325 M1 PO (22:15)
[2017-12-19] MEDS ORDERED: COZAAR 50 MG TA50 M2 PO (22:17)
[2017-12-19] MEDS ORDERED: AMARYL4 MG PO (22:18)
[2017-12-19] MEDS ORDERED: FLOMAX0.4 MG PO (22:19)
[2017-12-19] MEDS ORDERED: ULTRACET TABLET1 TAB PO (22:21)
[2017-12-19] MEDS ORDERED: VITAMINC500 PO (22:22)
[2017-12-19] MEDS ORDERED: CORAL CALCIUM1 EAC2 PO (22:23)
== END 2017-12-19 15:47 | DRG 694 ==
LOC: ER 14:48 → EROBS 16:59 → 4E 16:59
PROVIDERS: Hospitalist; Physician Assistant
DX: N13.30 Unspecified hydronephrosis (principal); M48.56XA Collapsed vertebra, not elsewhere classified, lumbar region, initial encounter for fracture; I42.9 Cardiomyopathy, unspecified; N17.9 Acute kidney failure, unspecified; R33.9 Retention of urine, unspecified; M54.16 Radiculopathy, lumbar region; I12.9 Hypertensive chronic kidney disease with stage 1 through stage 4 chronic kidney disease, or unspecified chronic kidney disease; M48.061 Spinal stenosis, lumbar region without neurogenic claudication; I48.2 Chronic atrial fibrillation; E78.5 Hyperlipidemia, unspecified; M62.84 Sarcopenia; N32.0 Bladder-neck obstruction; E11.22 Type 2 diabetes mellitus with diabetic chronic kidney disease; N18.3 Chronic kidney disease, stage 3 (moderate); K59.00 Constipation, unspecified; Z95.0 Presence of cardiac pacemaker; Z95.1 Presence of aortocoronary bypass graft; Z88.0 Allergy status to penicillin; Z88.8 Allergy status to other drugs, medicaments and biological substances; Z87.891 Personal history of nicotine dependence; Z79.01 Long term (current) use of anticoagulants; Z79.4 Long term (current) use of insulin; Z82.49 Family history of ischemic heart disease and other diseases of the circulatory system; Z83.3 Family history of diabetes mellitus
CPT/HCPCS: 10084

== ENCOUNTER 2017-12-19 10:47 | Inpatient (IN) | payer OTHER, BC ==
[~2017-12-19] VITALS: Ht 175.3 cm; Wt 104.3 kg
--- NOTE | ~2017-12-19 | HC ---
[facility] [place] [address] CONSULTATION Name: SHARYN OSEGUERA V Room #: 505-P [facility] IN M.R.#: [id number] Admission: 12/19/17 Attend Phys: Yoan Hernandez MD Discharge: Date of : 39 Report #: [id number] THIS REPORT FOR: //name// CC: Tai Hernandez DATE OF SERVICE: 12/22/2017 ATTENDING PHYSICIAN: Yoan Hernandez MD. AUTOMOTIVE PARTS COUNTER PERSON: Yariel Robles, PhD. CLINICAL PRESENTATION: The patient is a 77-year-old male admitted to the Rehabilitation Unit of [facility] for comprehensive inpatient rehabilitation program to improve functional mobility, activities of daily living and self-care and mental status secondary to deficits from a left neural foraminal stenosis at L5-S1 with radiculopathy. He also carries an assessment of superior endplate fracture at L4, gait instability, acute urinary retention with bilateral hydronephrosis, acute renal insufficiency, atrial fibrillation on chronic anticoagulation, subtherapeutic INR, insulin-dependent type 2 diabetes, coronary artery disease with history of coronary artery bypass grafting x 6, history of cardiac pacemaker and constipation. The patient has had a Neurology consult in which with a focus on concern about an abnormal gait and memory loss. Concern about Parkinson's disease was noted and a trial of Sinemet recommended. A complete description of his medical condition and history can be found in his medical record. Neuropsychological consultation was requested to provide assistance in the assessment of cognitive and emotional status and to provide recommendations and services. Prior to this most recent medical event, he was living independently with the assistance of a neighbor. The patient had been independent with driving and managing most instrumental activities of daily living up until 3 weeks ago. He is reported to have experienced severe constipation, which led to frequent Emergency Room visits. The patient then developed some difficulty with memory and a fall when getting out of bed, which led to this current hospitalization. He has one daughter that lives outside the [place] area. He has a very supportive community network. His neighbor was assisting in the management of his medications and because of orthopedic issues with his hand, she was also writing his checks for him. The patient reports having had a CVA about 5 years ago in which he has hemianopsia. 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 There is no reported history of alcohol/drug abuse or treatment for depression or anxiety. His in the . The patient does live alone. TECHNIQUES UTILIZED: Clinical interview, review of medical records, staff [address] [address] CONSULTATION Name: SHARYN OSEGUERA V Room #: 505-P [facility] IN ..#: [id number] Admission: 12/19/17 Attend Phys: Yoan Hernandez MD Discharge: Date of : 39 Report #: [id number] consultation and behavioral observation, mini mental status exam 2 standard version, clock drawing and verbal fluency assessment. EXAMINATION FINDINGS: The patient was alert and cooperative with the assessment. He was unable to describe all the events surrounding his hospitalization. His description was somewhat vague. There is no report of auditory or visual hallucinations or aphasia. His thoughts are logical and goal oriented. There is no evidence of thought disorder. He reports having difficulty with sleep. His appetite is reported as good. Difficulty with memory is noted. He denies anxiety and depression. His neighbor also does not describe him as anxious or despondent, but has noticed difficulty in memory with frequent repetition of questions. His performance on the MMSE 2 brief version was in the borderline range with a raw score of 12, T score of 29 and percentile rank of 2. He was 3/3 for initial registration, 4/5 for orientation to time and 5/[address]. He was 0/3 for immediate recall of 3 items after a brief time delay and distraction. His performance on the MMSE 2 standard version was a raw score of 21, T score of 27 and percentile rank of 1. He was 1/5 for serial sevens, 2/2 for naming, 1/1 for repetition, 3/3 for auditory comprehension. He was able to read and follow a single command and write a sentence. The patient had difficulty with copying a simple geometric design. Clock drawing was also a poor quality suggesting visual spatial deficits. Letter fluency was extremely low with a raw score of 4, T score of 26 and percentile rank of 1. Estimate of category fluency was in the borderline range with a T score of 36 and percentile rank of 8. Suggested is difficulty with thought organization and generative speech, which can often be seen in executive dysfunction. While alert and oriented, the patient is presenting with difficulty in memory, sustained concentration and attention, visual spatial organization and executive functioning. DIAGNOSTIC IMPRESSION: Neurocognitive disorder, unspecified, without behavior disorder - extent to be determined, likely in the moderate range. RECOMMENDATIONS: The patient may have experienced a deterioration in functioning associated with the use of medication that has sedating features. He is taking temazepam at 15 mg at bedtime and hydrocodone for pain that may be impacting cognition and gait. Consider reducing, as medically appropriate medication with sedating features. The patient will require a more supportive environment with increased structure and assistance in management of medication upon return home. A followup [address] [address] CONSULTATION Name: SHARYN OSEGUERA V Room #: 505-P ADM IN M.R.#: [id number] Admission: 12/19/17 Attend Phys: Yoan Hernandez MD Discharge: Date of : 39 Report #: [id number] neuropsychological evaluation will be of benefit to clarify neurocognitive status. Thank you very much for allowing me to provide the consultation on this patient. <ELECTRONICALLY SIGNED> By: Yariel Rboles, PhD 12/23/17 [id number] Yariel Robles, PhD /nt
--- NOTE | ~2017-12-19 | H ---
[facility] [place] [address] HISTORY AND PHYSICAL Name: SHARYN OSEGUERA V Room #: 505-P ADM IN M.R.#: [id number] Admission: 12/19/17 Attend Phys: Yoan Hernandez MD Discharge: Date of : 39 Report #: [id number] THIS REPORT FOR: //name// CC: Tai Hernandez DATE OF SERVICE: 12/19/2017 HISTORY AND PHYSICAL AND POST-ADMISSION PHYSICIAN EVALUATION HISTORY OF PRESENT ILLNESS: The patient is admitted for acute in-hospital inpatient rehabilitation. Please see my prior consult dictation and the history and physical from Nithya Bhatia, nurse practitioner from yesterday. He is noted to have left neural foraminal stenosis at L5-S1 with clinical radiculopathy superior endplate fracture at L4 and gait instability. He was having problems with worsening back pain, weakness and has had prior bilateral L4-L5 and L5-S1 facet injections under fluoroscopy. He was admitted to the hospital with an elevated INR and developed acute urinary retention. He was noted to have bilateral hydronephrosis with some acute renal insufficiency and had a Sanchez catheter placed. He had significant functional decline was admitted for acute in-hospital inpatient rehabilitation. PAST MEDICAL HISTORY, ALLERGIES, SOCIAL HISTORY, MEDICATIONS: Please see my prior consult and the history and physical. REVIEW OF SYSTEMS: Denies any current chest pain or shortness of breath or abdominal discomfort. He has the back pain with the lower extremity weakness, which he thinks may involve the left leg a little more than the right leg. He has the indwelling Sanchez catheter. PHYSICAL EXAMINATION: GENERAL: He is pleasant, alert. VITAL SIGNS: Last recorded temperature is 98, pulse 69, respirations 16, blood pressure 164/78. HEENT: Facies are symmetric. CHEST: Sounded clear to auscultation. CARDIOVASCULAR: Regular rate and rhythm. ABDOMEN: Bowel sounds positive, nontender. GENITOURINARY AND RECTAL: Revealed a Sanchez catheter in place. EXTREMITIES: Functional range of motion of both upper extremities. Strength is a grade 4/5. Lower extremity strength is 3+ to 4-. He has been needing max assist for basic toilet transfers and min assist coming to stand. He is needing min assist with the walker. He premorbidly had been living by himself with a friend closely involved and was able to care for himself with ADLs and mobility utilizing a walker. [address] [address] HISTORY AND PHYSICAL Name: SHARYN OSEGUERA V Room #: 505-P [facility] IN ..#: [id number] Admission: 12/19/17 Attend Phys: Yoan Hernandez MD Discharge: Date of : 39 Report #: [id number] ASSESSMENT: 1. Left neural foraminal stenosis L5-S1 with clinical radiculopathy. 2. Superior endplate fracture at L4. 3. Gait instability. 4. Acute urinary retention with bilateral hydronephrosis. 5. Acute renal insufficiency. 6. Atrial fibrillation, on chronic anticoagulation. 7. Supratherapeutic INR. 8. Insulin-dependent diabetes mellitus type 2. 9. Coronary artery disease with history of coronary artery bypass grafting x 6. 10. History of cardiac pacemaker. PLAN: From a postadmission physician evaluation perspective, there are no relevant changes since the preadmission screening. Please see the above review of prior and current medical and functional conditions and comorbidities. Please see the patient's previous and current functional status. As far as risk of complications, the patient has multiple medical comorbidities as noted above. Initial plan of care involves the interdisciplinary acute inpatient rehabilitation program with the goal of maximizing the patient's functional independence, so that he can hopefully return back to his prior living situation. Measurable functional goals would be for the patient to become modified independent with transfers, mobility and ADLs that he can hopefully return back to his prior living situation. Prognosis is reasonably good with estimated length of stay probably at least 10 days to 2 weeks pending prognosis The patient needs to keep his Sanchez catheter in for 2 weeks per Urology and will need outpatient followup for a voiding trial. Potential barriers would include his multiple medical comorbidities and decreased functional status. The patient meets diagnostic criteria for an acute in-hospital inpatient rehabilitation stay. He meets medical necessity criteria and we will have the commercial sales consultant physicians follow. He does have the tolerance for therapies and has appropriate discharge goals back to the home setting. <ELECTRONICALLY SIGNED> By: Yoan Hernandez MD 12/24/17 [id number] [id number] Yoan Hernandez MD /[place]
--- NOTE | ~2017-12-19 | PLAN ---
[place] [address] REHAB UNIT PLAN OF CARE Name: SHARYN OSEGUERA V Room #: 505-P ADM IN M.R.#: [id number] Admission: 12/19/17 Attend Phys: Yoan Hernandez MD Discharge: Date of : 39 Report #: [id number] THIS REPORT FOR: //name// CC: Tai Hernandez DATE OF SERVICE: 12/21/2017 PROGRESS NOTE/OVERALL PLAN OF CARE The patient is seen earlier. He was in no distress. Temperature 36.8, pulse 69, respirations 18, blood pressure 154/80. Sleepy, but arousable Sanchez catheter in place, follows basic commands without difficulty. Transfers have been mod assist. Gait min assist 60 feet with a front-wheeled walker. Lower body dressing is dependent. Moderate comprehensive deficits, [id number] expressive deficits, severe cognitive deficits. ASSESSMENT: 1. Left neural foraminal stenosis L5-S1 with radiculopathy. 2. Superior endplate fracture at L4. 3. Parkinsons, which appears to be improved. Sinemet dose has been increased. 4. Acute urinary retention with bilateral hydronephrosis. 5. Acute renal insufficiency. 6. Atrial fibrillation, on chronic anticoagulation. 7. Previous supratherapeutic INR. 8. Insulin-dependent diabetes mellitus type 2. 9. Coronary artery disease with history of coronary artery bypass grafting x 6. 10. History of cardiac pacemaker. PLAN: The overall plan of care is based on the preadmission screen, post-admission physician evaluation and information garnered from therapy assessments. 1. Estimated length of stay is probably going to be at least 10 days to 2 weeks and likely longer. He needs to keep the Sanchez catheter in for 2 weeks per Urology. 2. Medical prognosis is reasonably good. 3. Anticipated interventions include the interdisciplinary acute inpatient rehabilitation program with PT, OT, speech rehab nursing assisting regarding medication management, skin care prophylaxis, bowel and bladder issues and nursing education. We will have the interdisciplinary acute rehab therapy team involved as well as the animal nutrition consultant physicians. 4. Anticipated functional outcomes would be for the patient to improve as far as his gait, mobility, independence as well as ADLs and cognition to hopefully return back to his prior home setting. Goal would to be independent at a walker level. 5. Discharge destination would be back to the home setting. He does have a neighbor that is involved and is likely going to need more assistance. There is a daughter out of town. 6. Expected therapy by discipline includes PT, OT [address] [address] REHAB UNIT PLAN OF CARE Name: SHARYN OSEGUERA V Room #: 505-P [facility] IN ..#: [id number] Admission: 12/19/17 Attend Phys: Yoan Hernandez MD Discharge: Date of : 39 Report #: [id number] and speech 1 hour per day each five days a week throughout the duration of the acute inpatient rehabilitation stay. <ELECTRONICALLY SIGNED> By: Yoan Hernandez MD 12/24/17 1429 1709 0021 Yoan Hernandez MD /nt
--- NOTE | ~2017-12-19 | H ---
[facility] [place] [address] HISTORY AND PHYSICAL Name: SHARYN OSEGUERA V Room #: 505-P [facility] IN M.R.#: [id number] Admission: 12/19/17 Attend Phys: Yoan Hernandez MD Discharge: Date of : 39 Report #: [id number] THIS REPORT FOR: //name// CC: Tai Hernandez DATE OF SERVICE: 12/19/2017 HISTORY OF PRESENT ILLNESS: This is a 77-year-old gentleman presenting with complaints of worsening back pain and weakness and 3 weeks prior to admission, the patient underwent at the pain clinic bilateral L4-L5 and L5-S1 facet injections under fluoroscopy. On 12/12/2017, in the hospital, he was noted to have an INR over 5 and had developed acute urinary retention. Upon further diagnostic testing, he was found to have bilateral hydronephrosis and required a Sanchez catheter placed. He was also found to be in acute renal failure. His back pain was further evaluated and found a superior endplate fracture at L4 and had significant left neuroforaminal stenosis, L5-S1 along with multi-joint spinal degenerative arthritis. Due to his significant functional decline in mobility, he has now been admitted to acute inpatient rehab for both physical and occupational therapies. Today, he reports continued low back pain. He does have some radiation down bilateral legs. When he stands or has activity, the back and leg pain worsens. He also reports constipation and no bowel movement for 4-5 days. He notes his Sanchez catheter started draining blood-tinged urine starting yesterday. PAST MEDICAL HISTORY: Pacemaker surgery, CAD with bypass grafting x 6, AFib, symptomatic lumbar spondylosis, hyperlipidemia, type 2 diabetes, repeated falls, nephrolithiasis. ALLERGIES: TO PENICILLIN, ZETIA, SIMVASTATIN, ATORVASTATIN, WELCHOL. HABITS: Quit smoking cigarettes over a year ago. Denies illicit drug use. Denies alcohol use. SOCIAL HISTORY: Lives in a house alone. He does have a neighbor that is closely involved and cares for him. There are no steps. He does have [facility]. Premorbidly, the patient was independent for ADLs and utilized a walker with ambulation. He does have a ramp and a roller walker. He has a daughter that lives out of town. MEDICATIONS: Carvedilol 6.25 mg twice a day, Humalog a.c. and at bedtime, Pacerone 200 mg twice a day, Zofran p.r.n., and [place] p.r.n. REVIEW OF SYSTEMS: Remainder of his 12-point review of systems is negative except as listed in HPI. [address] [address] HISTORY AND PHYSICAL Name: SHARYN OSEGUERA V Room #: 505-P [facility] IN ..#: [id number] Admission: 12/19/17 Attend Phys: Yoan Hernandez MD Discharge: Date of : 39 Report #: [id number] PHYSICAL EXAMINATION: VITAL SIGNS: Blood pressure 169/69, pulse 70, temperature 98.0, respirations 16. He is 94% oxygen on room air. GENERAL: He is awake, alert. He is oriented x 3. He can be forgetful. He is hard of hearing. EYES: EOMs are intact. No icterus. ENT: No sinus tenderness. CHEST: Lungs are clear and diminished in the bases. CARDIAC: S1, S2. ABDOMEN: Bowel sounds are active. He is soft. He has no tenderness to palpation. No rebound or guarding. GENITOURINARY: He has a Sanchez catheter to dependent drainage with bloody urine output noted into the urine bag. SKIN: Warm, dry, and intact. NEUROLOGIC: Cranial nerves 2-12 grossly intact. No facial droop. No clonus. EXTREMITIES: Bilateral lower extremity trace edema. No tenderness to palpation. Negative Homans sign. No foot drop. Sensation appeared reasonably intact. Functional range of motion in both upper extremities. Lower extremity strength is approximately 3+ to 4-. grossly. MUSCULOSKELETAL: Toileting max assist, toilet transfer mod assist, max assist for lower extremity dressing, min assist to ambulate 50 feet with a front wheel walker, min assist for sit to stand. With his gait, there was noted occasional shuffling and freezing of feet. He did require min assist for balance with turns. ASSESSMENT: 1. Left neuroforaminal stenosis L5-S1 with clinical radiculopathy. 2. Superior endplate fracture at L4. 3. Gait instability. 4. Acute urinary retention with bilateral hydronephrosis. 5. Acute renal insufficiency. 6. Atrial fibrillation, on chronic anticoagulation. 7. Supratherapeutic INR. 8. Insulin-dependent type 2 diabetes. 9. Coronary artery disease with history of coronary artery bypass grafting x 6. 10. History of cardiac pacemaker. 11. Constipation. PLAN: The patient has been admitted to inpatient rehab for physical and occupational therapy to improve his functional mobility and help him safely return to the home setting. He will continue with his Sanchez catheter for 2 weeks per Urology and will need outpatient followup for a voiding trial. We will get followup labs in the morning for renal function and INR. He is given [facility] [address] [place] [address] HISTORY AND PHYSICAL Name: SHARYN OSEGUERA V Room #: 505-P [facility] IN ..#: [id number] Admission: 12/19/17 Attend Phys: Yoan Hernandez MD Discharge: Date of : 39 Report #: [id number] stool softeners and laxatives for his bowels. Hospital continuous improvement consultant will continue to manage acute medical issues. <ELECTRONICALLY SIGNED> By: JERAD Torres 12/27/17 1604 1436 1519 JERAD Torres /nt
[2017-12-19] MEDS ORDERED: LASIX 40 MG TAB40 M2 PO (22:14)
[2017-12-19] MEDS ORDERED: ASPIRIN EC325 M1 PO (22:15)
[2017-12-19] MEDS ORDERED: COZAAR 50 MG TA50 M2 PO (22:17)
[2017-12-19] MEDS ORDERED: AMARYL4 MG PO (22:18)
[2017-12-19] MEDS ORDERED: FLOMAX0.4 MG PO (22:19)
[2017-12-19] MEDS ORDERED: ULTRACET TABLET1 TAB PO (22:21)
[2017-12-19] MEDS ORDERED: VITAMINC500 PO (22:22)
[2017-12-19] MEDS ORDERED: CORAL CALCIUM1 EAC2 PO (22:23)
[2017-12-20 05:56] LABS: HEMATOCRIT 35.1 % (42.0-52.0); HEMOGLOBIN 11.9 gm/dL (14.0-18.0); MCH 27.9 pg (26.0-34.0); MCHC 33.8 g/dL (28.0-37.0); MCV 82.5 fL (80.0-100.0); RBC 4.25 mil/uL (4.50-6.00); RDW 15.4 % (10.5-14.5); WBC 8.6 thou/uL (4.0-11.0)
[2017-12-20 06:04] LABS: ALBUMIN 2.9 g/dL (3.4-5.0); CALCIUM 8.9 mg/dL (8.5-10.1); CREATININE 1.5 mg/dL (0.7-1.3); PHOSPHORUS 2.8 mg/dL (2.5-4.9)
[2017-12-20 06:25] LABS: PROTIME 16.5 Seconds (9.3-11.4)
[2017-12-20 06:30] LABS: INR 1.6
[2017-12-20 08:33] VITALS: BP 161/74
[2017-12-20 20:07] VITALS: BP 154/80
[2017-12-20 23:08] LABS: GLYCOHEMOGLOBIN (HGB A1C) 7.2 % (4.8-5.6)
[2017-12-21 04:39] LABS: ALBUMIN 2.9 g/dL (3.4-5.0); CALCIUM 8.9 mg/dL (8.5-10.1); CREATININE 1.6 mg/dL (0.7-1.3); PHOSPHORUS 2.9 mg/dL (2.5-4.9); POTASSIUM 3.9 mmol/L (3.5-5.1)
[2017-12-21 07:05] VITALS: BP 162/84
[2017-12-21 20:00] VITALS: BP 168/80
[2017-12-22 07:05] VITALS: BP 158/78
[2017-12-22 20:24] VITALS: BP 163/85
[2017-12-23 07:15] VITALS: BP 156/84
[2017-12-23 10:37] LABS: ABSOLUTE NEUTROPHILS 6.7 thou/uL (1.4-8.2); BASOPHILS 0.8 % (0.0-2.0); EOSINOPHILS 3.2 % (0.0-3.0); HEMOGLOBIN 11.8 gm/dL (14.0-18.0); MCH 27.9 pg (26.0-34.0); MCHC 33.6 g/dL (28.0-37.0); MCV 82.9 fL (80.0-100.0); MONOCYTES 7.1 % (1.0-8.0); PLATELET COUNT 154 thou/uL (150-400); POLYS 74.9 % (36.0-66.0); RBC 4.22 mil/uL (4.50-6.00); RDW 15.5 % (10.5-14.5)
[2017-12-23 10:40] LABS: CALCIUM 9.2 mg/dL (8.5-10.1); CREATININE 1.6 mg/dL (0.7-1.3); POTASSIUM 4.1 mmol/L (3.5-5.1)
[2017-12-23 10:47] LABS: INR 1.1; PROTIME 11.2 Seconds (9.3-11.4)
[2017-12-23 20:10] VITALS: BP 99/51
[2017-12-24 06:18] LABS: INR 1.1; PROTIME 10.8 Seconds (9.3-11.4)
[2017-12-24 07:15] VITALS: BP 149/84
[2017-12-24 19:07] VITALS: BP 150/68
[2017-12-25 06:48] LABS: INR 1.1; PROTIME 11.1 Seconds (9.3-11.4)
[2017-12-25 07:30] VITALS: BP 144/77
[2017-12-25 18:00] VITALS: BP 165/80
[2017-12-25 19:25] VITALS: BP 156/77
[2017-12-26 06:18] LABS: ABSOLUTE NEUTROPHILS 4.3 thou/uL (1.4-8.2); EOSINOPHILS 4.2 % (0.0-3.0); HEMATOCRIT 35.2 % (42.0-52.0); HEMOGLOBIN 11.7 gm/dL (14.0-18.0); LYMPHOCYTES 22.8 % (24.0-44.0); MCH 27.9 pg (26.0-34.0); MCHC 33.3 g/dL (28.0-37.0); MCV 83.7 fL (80.0-100.0); MONOCYTES 10.8 % (1.0-8.0); PLATELET COUNT 137 thou/uL (150-400); POLYS 61.2 % (36.0-66.0); RBC 4.21 mil/uL (4.50-6.00); RDW 15.8 % (10.5-14.5)
[2017-12-26 06:32] LABS: INR 1.1; PROTIME 11.3 Seconds (9.3-11.4)
[2017-12-26 06:38] LABS: CALCIUM 9.3 mg/dL (8.5-10.1); CREATININE 1.6 mg/dL (0.7-1.3); POTASSIUM 4.2 mmol/L (3.5-5.1)
[2017-12-26 07:20] VITALS: BP 152/77
[2017-12-26 17:14] VITALS: BP 153/75
[2017-12-27 08:16] VITALS: BP 136/61
[2017-12-27 20:15] VITALS: BP 144/73
[2017-12-28 07:07] VITALS: BP 155/84
[2017-12-28 16:35] VITALS: BP 159/82
[2017-12-28 19:25] VITALS: BP 155/76
[2017-12-29 04:13] LABS: ABSOLUTE NEUTROPHILS 4.1 thou/uL (1.4-8.2); BASOPHILS 1.1 % (0.0-2.0); EOSINOPHILS 4.5 % (0.0-3.0); HEMOGLOBIN 11.7 gm/dL (14.0-18.0); LYMPHOCYTES 21.7 % (24.0-44.0); MCH 27.6 pg (26.0-34.0); MCHC 33.4 g/dL (28.0-37.0); MCV 82.9 fL (80.0-100.0); MONOCYTES 10.6 % (1.0-8.0); PLATELET COUNT 131 thou/uL (150-400); POLYS 62.1 % (36.0-66.0); RBC 4.22 mil/uL (4.50-6.00); RDW 15.4 % (10.5-14.5); WBC 6.6 thou/uL (4.0-11.0)
[2017-12-29 04:26] LABS: CALCIUM 9.1 mg/dL (8.5-10.1); CREATININE 1.7 mg/dL (0.7-1.3); POTASSIUM 3.9 mmol/L (3.5-5.1)
[2017-12-29 04:32] LABS: INR 1.3; PROTIME 12.3 Seconds (9.3-11.4)
[2017-12-29 07:30] VITALS: BP 141/78
[2017-12-29 17:00] VITALS: BP 155/83
[2017-12-29 19:54] VITALS: BP 148/71
[2017-12-30 04:24] LABS: INR 1.3; PROTIME 13.5 Seconds (9.3-11.4)
[2017-12-30 07:15] VITALS: BP 134/72
[2017-12-30 19:55] VITALS: BP 142/61
[2017-12-31 05:16] LABS: INR 1.4; PROTIME 14.5 Seconds (9.3-11.4)
[2017-12-31 05:22] LABS: ALBUMIN 2.9 g/dL (3.4-5.0); CREATININE 2.1 mg/dL (0.7-1.3); PHOSPHORUS 3.8 mg/dL (2.5-4.9); POTASSIUM 3.8 mmol/L (3.5-5.1)
[2017-12-31 07:30] VITALS: BP 131/67
[2017-12-31 16:00] VITALS: BP 135/65
[2017-12-31 19:35] VITALS: BP 157/76
[2018-01-01 04:12] LABS: INR 1.6; PROTIME 16.1 Seconds (9.3-11.4)
[2018-01-01 07:20] VITALS: BP 143/75
[2018-01-01 15:01] VITALS: BP 136/69
[2018-01-01 19:25] VITALS: BP 150/83
[2018-01-02 03:51] LABS: BASOPHILS 1.5 % (0.0-2.0); EOSINOPHILS 6.4 % (0.0-3.0); HEMATOCRIT 34.5 % (42.0-52.0); HEMOGLOBIN 11.2 gm/dL (14.0-18.0); LYMPHOCYTES 25.4 % (24.0-44.0); MCH 27.3 pg (26.0-34.0); MCHC 32.6 g/dL (28.0-37.0); MCV 83.8 fL (80.0-100.0); MONOCYTES 10.8 % (1.0-8.0); PLATELET COUNT 109 thou/uL (150-400); POLYS 55.9 % (36.0-66.0); RBC 4.11 mil/uL (4.50-6.00); RDW 15.4 % (10.5-14.5); WBC 5.3 thou/uL (4.0-11.0)
[2018-01-02 03:54] LABS: INR 1.8; PROTIME 18.1 Seconds (9.3-11.4)
[2018-01-02 03:57] LABS: CALCIUM 8.6 mg/dL (8.5-10.1); CREATININE 1.7 mg/dL (0.7-1.3); POTASSIUM 3.7 mmol/L (3.5-5.1)
[2018-01-02 07:20] VITALS: BP 149/83
[2018-01-02 21:22] VITALS: BP 139/68
[2018-01-03 06:23] LABS: BASOPHILS 0.8 % (0.0-2.0); EOSINOPHILS 4.1 % (0.0-3.0); HEMATOCRIT 35.9 % (42.0-52.0); HEMOGLOBIN 12.1 gm/dL (14.0-18.0); LYMPHOCYTES 18.2 % (24.0-44.0); MCH 27.8 pg (26.0-34.0); MCHC 33.7 g/dL (28.0-37.0); MCV 82.5 fL (80.0-100.0); MONOCYTES 10.9 % (1.0-8.0); PLATELET COUNT 125 thou/uL (150-400); RBC 4.35 mil/uL (4.50-6.00); RDW 15.5 % (10.5-14.5); WBC 7.5 thou/uL (4.0-11.0)
[2018-01-03 06:37] LABS: INR 2.2; PROTIME 22.1 Seconds (9.3-11.4)
[2018-01-03 06:39] LABS: ALBUMIN 3.1 g/dL (3.4-5.0); CALCIUM 9.2 mg/dL (8.5-10.1); CREATININE 1.9 mg/dL (0.7-1.3); MAGNESIUM 1.9 mg/dL (1.8-2.4); PHOSPHORUS 3.6 mg/dL (2.5-4.9); POTASSIUM 3.9 mmol/L (3.5-5.1)
[2018-01-03 08:10] VITALS: BP 144/68
[2018-01-03] MEDS ORDERED: COLACE 100 MG100 MG PO (13:52)
[2018-01-03] MEDS ORDERED: MIRALAX17 GM PO (13:52)
[2018-01-03] MEDS ORDERED: COUMADIN 2 MG TA2 M1 PO (13:52)
[2018-01-03] MEDS ORDERED: MILK OF MA2400 MG/10 PO (13:52)
[2018-01-03] MEDS ORDERED: CARBIDOPA-LEVO1 EAC9 PO (13:52)
[2018-01-03] MEDS ORDERED: ULTRACET TABLET1 TAB PO (13:52)
[2018-01-03] MEDS ORDERED: COUMADIN 1MG TAB1 M1 PO (13:52)
[2018-01-03] MEDS ORDERED: FINASTERIDE5 MG PO (13:52)
[2018-01-03] MEDS ORDERED: PEPCID20 MG PO (13:52)
[2018-01-03] MEDS ORDERED: LASIX 40 MG TAB40 M2 PO (13:52)
[2018-01-03] MEDS ORDERED: RESTORIL15 MG PO (13:52)
[2018-01-03] MEDS ORDERED: BISACODYL SUPP10 MG RECTAL (13:55)
[2018-01-03] MEDS ORDERED: HYDROCODON-ACE1 EAC7 PO (13:55)
== END 2018-01-03 14:27 | DRG 552 ==
PROVIDERS: Hospitalist; Nurse Practitioner; Nurse Practitioner Family; Physical Medicine & Rehabilitation
DX: M48.07 Spinal stenosis, lumbosacral region (principal); M48.56XA Collapsed vertebra, not elsewhere classified, lumbar region, initial encounter for fracture; N17.9 Acute kidney failure, unspecified; I42.9 Cardiomyopathy, unspecified; N13.39 Other hydronephrosis; N13.4 Hydroureter; G20 Parkinson's disease; M54.5 Low back pain; M19.90 Unspecified osteoarthritis, unspecified site; R33.9 Retention of urine, unspecified; N32.89 Other specified disorders of bladder; K59.00 Constipation, unspecified; I25.10 Atherosclerotic heart disease of native coronary artery without angina pectoris; E78.5 Hyperlipidemia, unspecified; R29.6 Repeated falls; Z60.2 Problems related to living alone; R41.9 Unspecified symptoms and signs involving cognitive functions and awareness; E11.22 Type 2 diabetes mellitus with diabetic chronic kidney disease; N18.3 Chronic kidney disease, stage 3 (moderate); M47.27 Other spondylosis with radiculopathy, lumbosacral region; R26.9 Unspecified abnormalities of gait and mobility; I12.9 Hypertensive chronic kidney disease with stage 1 through stage 4 chronic kidney disease, or unspecified chronic kidney disease; I48.2 Chronic atrial fibrillation; M62.84 Sarcopenia; R53.81 Other malaise; E53.8 Deficiency of other specified B group vitamins; Z95.0 Presence of cardiac pacemaker; Z87.442 Personal history of urinary calculi; Z88.0 Allergy status to penicillin; Z88.8 Allergy status to other drugs, medicaments and biological substances; Z87.891 Personal history of nicotine dependence; Z79.899 Other long term (current) drug therapy; Z79.4 Long term (current) use of insulin; Z79.01 Long term (current) use of anticoagulants; Z95.1 Presence of aortocoronary bypass graft
CPT/HCPCS: 10112

== ENCOUNTER → 2018-03-11 | Outpatient (CLI) | payer OTHER, BC ==
[~2018-03-11] MED LIST changes: +BISACODYL SUPP10 MG RECTAL; +CARBIDOPA-LEVO1 EAC9 PO; +COLACE 100 MG100 MG PO; +CORAL CALCIUM1 EAC2 PO; +COUMADIN 2 MG TA2 M1 PO; +COZAAR 50 MG TA50 M2 PO; +FINASTERIDE5 MG PO; +GABAPENTIN 100100 MG PO; +HYDROCODON-ACE1 EAC7 PO; +IRON325 PO; +LASIX 40 MG TAB40 M2 PO; +MAGOX 400400 MG PO; +MILK OF MA2400 MG/10 PO; +MIRALAX17 GM PO; +MOVANTIK25 MG PO; +PEPCID20 MG PO
--- NOTE | ~2018-03-11 | HPC ---
[facility] [place] [address] [address] [place] [address] PAIN MANAGEMENT CONSULTATION Name: SHARYN OSEGUERA V Room #: REG [facility] Jayashree#: [id number] Admission: 03/11/18 Attend Phys: Aristides Cardona DO Discharge: Date of : 39 Report #: [id number] THIS REPORT FOR: //name// CC: Tai Cardona DATE OF SERVICE: 03/11/2018 CHIEF COMPLAINT: Back pain. HISTORY OF PRESENT ILLNESS: As you know, the patient is a fairly debilitated 78-year-old very unfortunate male with ongoing low back pain issues. Apparently, the patient underwent lumbar facet injections with Dr. Derrick Cardona at the visit of 12/12/2017 to try to improve axial back pain issues. The patient apparently has been involved in long-term rehabilitation, but is unable to participate in rehabilitation due to back pain. He has been refusing to undergo the rehabilitation and this is causing some consternation with the individuals at his facility. He has been referred back to our clinic to trial repeating bilateral L4-L5, L5-S1 intra-articular facet injections as the patient indicates improvement with this procedure. The patient returns today to the clinic utilizing a wheelchair. He is unwilling to ambulate. He is placing his current pain score at 8-9/10 involving his axial back. He is somewhat non-forthcoming with his information. He indicates his pain is constant, sharp and stabbing. The rest of his history is being provided by his significant other than the bedside. ALLERGIES: PENICILLIN, SIMVASTATIN, WELCHOL, ATORVASTATIN. CURRENT MEDICATIONS: Dulcolax suppositories, hydrocodone, furosemide, temazepam, tramadol, finasteride, famotidine, MiraLax, magnesium, docusate sodium, carbidopa/levodopa, warfarin, calcium oxide, ascorbic acid, tamsulosin, losartan, multivitamin, omega 3 fish oil, Coenzyme Q, cholecalciferol, carvedilol, insulin, amiodarone, pravastatin, digoxin and Zetia. SOCIAL HISTORY: The patient reports himself a nonsmoker. Denies IV or illicit drug use. 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 He is accompanied by a family member present in room. IMAGING: No new imaging available. PQRS: The patient has a history of osteoarthritis of the bilateral shoulders, hips and knees as well as low back. No history of rheumatoid arthritis. His pain intensity is 8/9, fall risk. He is a fall risk, but has not had a fall in the last 3 months. He is on blood thinners. He is treated for hypertension. He is not on chronic opioids. His functional assessment pain impact tool [address] [address] PAIN MANAGEMENT CONSULTATION Name: ANA ROSASHARYN Opal Room #: REG [facility] Blanc#: [id number] Admission: 03/11/18 Attend Phys: Aristides Cardona DO Discharge: Date of : 39 Report #: [id number] reports 63/70 near complete interference of daily activities secondary to pain. PHYSICAL EXAMINATION: VITAL SIGNS: Blood pressure 150/86, pulse 70, respiratory rate 20 and unlabored. The patient is 97% on room air. Height 5 feet 6 inches tall, weight 238 pounds. GENERAL: Well-developed, well-nourished, well-hydrated morbidly obese 78-year-old male. He appears much older than stated age. He appears frail and disheveled. He is placing current pain score at 8-9/10. HEENT: Normocephalic, atraumatic. Pupils equal, round and reactive to light. Extraocular muscles are intact. Speech fluent. The patient deemed a poor historian. EXTREMITIES: Show no clubbing, no cyanosis. There is 1-2+ nonpitting lower extremity edema. There are also noted venous stasis changes in the lower extremities bilaterally. MUSCULOSKELETAL: Palpatory tenderness over the paraspinal musculature of lower lumbar spine. The patient refuses to arise from the seated position. He also refuses to participate in any of the provocation testing. ASSESSMENT: 1. Lumbosacral spondylosis without radicular symptoms. 2. Facet arthropathy of the lumbar spine. 3. Lumbar degeneration. 4. Obesity. 5. Chronic intractable pain. PLAN: 1. The patient has been referred back to our clinic to trial intraarticular facet injections at L4-L5 and L5-S1. He reports some improvement in symptoms with previous injections provided in December. Unfortunately, the patient has been refusing to undergo physical therapy at his rehabilitation facility, which is placing him at risk for discharge as he is not participating. He has been referred back to our clinic to trial these injections to determine if symptoms will improve. He has discontinued his anticoagulation with an INR of 1.1 to undergo the procedure. He has been advised the risks and benefits of the procedure. These risks include but are not necessarily limited to bleeding, bruising, infection, worsening pain, no relief of pain, also risk of temporary or permanent muscle weakness, temporary or permanent nerve damage, possible paralysis and . The patient states he understood and wished to proceed. 2. No medication changes made at today's visit. We did request that he is to receive pain medication 30 minutes prior to physical therapy this should help with axial back pain issues and his participation. We will defer to the facility he is at to make these adjustments if they wish. 3. The patient will restart his anticoagulant today and continue his anticoagulant as directed. We have made no changes in that therapy. [facility] [address] [place] [address] PAIN MANAGEMENT CONSULTATION Name: SHARYN OSEGUERA Opal [id number] Admission: 03/11/18 Attend Phys: Aristides Cardona DO Discharge: Date of : 39 Report #: [id number] 4. We will see the patient back in followup visit on an as needed basis for intra-articular facet injections. <ELECTRONICALLY SIGNED> By: Aristides Cardona DO 03/18/18 0727 0811 1311 Aristides Cardona DO /nt
--- NOTE | ~2018-03-11 | P ---
[facility] [place] [address] PROCEDURE REPORT Name: ANA ROSASHARYN Joseph [facility] [id number] Admission: 03/11/18 Attend Phys: Aristides Cardona DO Discharge: Date of : 39 Report #: [id number] THIS REPORT FOR: //name// CC: Tai Cardona DATE OF SERVICE: 03/11/2018 DESCRIPTION OF PROCEDURE: Bilateral L4-L5, L5-S1 intra-articular facet injections under fluoroscopic guidance. PROCEDURE IN DETAIL: After written informed consent was obtained, the patient was taken to the fluoroscopy suite, placed in a prone position. The area overlying the lumbar spine was prepped and draped in aseptic fashion. Fluoroscope was then brought into position over the lumbar spine and the L4-L5, L5-S1 facet joints were identified bilaterally. A wide prep and drape was accomplished. Skin wheal with Xylocaine was raised at each of the sites for a total of 4 mL being provided. Next, four 22-gauge 3-1/2-inch spinal needles with bent tips were advanced under fluoroscopic guidance to the L4-L5, L5-S1 facets. [place] were advanced into the joints, but not into the articular cartilage. After entering the joints, aspiration was noted to be negative for heme, 0.2 mL of Omnipaque was injected at each of the sites showing excellent facet arthrograms. After negative aspiration for all 4 sites, 1.5 mL of a solution containing 2 mL 40 mg per mL, 80 mg total triamcinolone and 5 mL of bupivacaine 0.5% injected slowly. [place] were retracted approximately half way, flushed with 1 mL of 1% lidocaine and removed. The patient tolerated the procedure well. Sterile bandages were placed over each injection sites. The patient was noted to be able to move all 4 extremities after procedure. The patient was then log rolled back onto a transportation gurney. He was taken to the recovery room, monitored to match our discharge criteria. Once meeting all discharge criteria, he was discharged home. <ELECTRONICALLY SIGNED> By: Aristides Cardona DO 03/18/18 0727 0811 1315 Aristides Cardona DO /nt
[2018-03-11 10:01] LABS: INR 1.3; PROTIME 13.3 Seconds (9.3-11.4)
[2018-03-11 10:40] VITALS: BP 150/86
== END | disposition home or self-care (01) ==
LOC: PAIN 06:54
PROVIDERS: Anesthesiology Pain Medicine
DX: M12.88 Other specific arthropathies, not elsewhere classified, other specified site (principal); M47.817 Spondylosis without myelopathy or radiculopathy, lumbosacral region; M51.36 Other intervertebral disc degeneration, lumbar region; G89.29 Other chronic pain; E66.9 Obesity, unspecified; I10 Essential (primary) hypertension; E66.01 Morbid (severe) obesity due to excess calories; I12.9 Hypertensive chronic kidney disease with stage 1 through stage 4 chronic kidney disease, or unspecified chronic kidney disease; N18.9 Chronic kidney disease, unspecified; Z98.890 Other specified postprocedural states; Z88.0 Allergy status to penicillin; Z88.8 Allergy status to other drugs, medicaments and biological substances; Z79.899 Other long term (current) drug therapy; Z87.39 Personal history of other diseases of the musculoskeletal system and connective tissue; Z79.4 Long term (current) use of insulin; Z79.01 Long term (current) use of anticoagulants; Z87.891 Personal history of nicotine dependence